=== PATIENT | male | born 1960 | race African-American/Black ===

== ENCOUNTER 2016-10-03 19:47 | Emergency (ER) | payer SELFPAY ==
[~2016-10-03 19:47] MED LIST: IBUP800T23 PO; METH750T2 PO
[2016-10-03 19:50] VITALS: BP 158/86; PULSE 71; RESP 16; TEMP 98.1; O2SAT 99
[2016-10-03] MEDS ORDERED: IBUP-988 PO (21:47)
[2016-10-03 21:54] VITALS: BP 163/100; PULSE 64; RESP 18; O2SAT 100
[2016-10-03 21:59] VITALS: RESP 18; O2SAT 100
[2016-10-03] MEDS ORDERED: MORPHINE SULFATE 4 MG/ML INJ IV PUSH ONE (22:00)
[2016-10-03] MEDS ORDERED: ONDANSETRON HCL 4 MG/2 ML VIAL IVP ONE (22:00)
[2016-10-03] MEDS ORDERED: SODIUM CHLORIDE 0.9% FLUSH 5 ML FLUSH IVF PRN (22:00)
--- NOTE | 2016-10-03 22:26 | PD ---
HPI . Left-sided weakness Chief Complaint: Numbness/Tingling Time Seen by Provider: 21:53 Travel History International Travel<30 days: No Contact w/Intl Traveler<30days: No Traveled to known affect area: No History of Present Illness HPI Patient presents with left-sided weakness and numbness which started yesterday. He states that it is progressively worse today. He denies any associated symptoms such as headache, blurred vision, facial weakness, nausea or vomiting. He has noted no exacerbating or relieving symptoms. He reports no chronic medical problems such as diabetes or hypertension. He complains of chronic low back pain. [id number]: Left side DURATION: 24 hours TIMING: Continuous and worsening CONTEXT: No history of hypertension or diabetes MODIFYING FACTORS: No exacerbating or relieving factors ASSOCIATED SYMPTOMS: Chronic low back pain PFSH Past Medical History Diminished Hearing: No Musculoskeletal: Yes (BACK INJURY) Tetanus Vaccination: Unknown Influenza Vaccination: No Past Surgical History Surgical History: No Previous Surgery Social History Alcohol Use: Yes (DAILY) Tobacco Use: Yes (<1/2 PPD) Substance Use: No Allergies-Medications (Allergen,Severity, Reaction): Coded Allergies: No Known Allergies (Unverified , 10/03/16) Reported Meds & Prescriptions Reported Meds & Active Scripts Active Reported Advil (Ibuprofen) 200 Mg Tab 400 Mg PO BID Review of Systems Except as stated in HPI: all other systems reviewed are Neg General / Constitutional: No: Fever, Chills Eyes: No: Blurred Vision HENT: No: Headaches Cardiovascular: No: Chest Pain or Discomfort Respiratory: No: Shortness of Breath Gastrointestinal: No: Nausea, Vomiting, Diarrhea Genitourinary: No: Incontinence Musculoskeletal: Positive: Pain (chronic low back pain) Neurologic: Positive: Weakness, Focal Abnormalities, Paresthesia Physical Exam Narrative GENERAL: Awake and alert and in no acute distress. SKIN: Warm and dry. HEAD: Atraumatic. Normocephalic. EYES: Pupils equal and round. ENT: No nasal bleeding or discharge. Mucous membranes pink and moist. NECK: Trachea midline. Neck is supple. CARDIOVASCULAR: Regular rate and rhythm. Heart sounds are normal. RESPIRATORY: No accessory muscle use. Lungs are clear with good air movement throughout. GASTROINTESTINAL: Abdomen soft, non-tender, nondistended. MUSCULOSKELETAL: No obvious deformities. No edema. NEUROLOGICAL: Awake and alert. No obvious cranial nerve deficits. 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 He is holding his biceps muscle tenderness with apparent full strength. When I was checking reflexes in his lower extremities, he could not relax his left leg. He was holding his leg up off the stretcher in no apparent weakness. The patient walked into triage. Normal speech. PSYCHIATRIC: Appropriate mood and affect; insight and judgment normal. Data Data Last Documented VS Vital Signs Date Time Temp Pulse Resp B/P Pulse Ox O2 Delivery O2 Flow Rate FiO2 10/03/16 21:59 18 100 Room Air 10/03/16 21:54 64 163/100 10/03/16 19:50 98.1 Orders Electrocardiogram (10/03/16 21:53) Prothrombin Time / Inr (Pt) (10/03/16 21:53) Act Partial Throm Time (Ptt) (10/03/16 21:53) Complete Blood Count With Diff (10/03/16 21:53) Comprehensive Metabolic Panel (10/03/16 21:53) Ct Brain W/O Iv Contrast(Rout) (10/03/16 21:53) Chest, Single Ap (10/03/16 21:53) Ecg Monitoring (10/03/16 21:53) Iv Access Insert/Monitor (10/03/16 21:53) Oximetry (10/03/16 21:53) Morphine Inj (Morphine Inj) (10/03/16 22:00) Ondansetron Inj (Zofran Inj) (10/03/16 22:00) Sodium Chloride 0.9% Flush (Ns Flush) (10/03/16 22:00) Labs Laboratory Tests Test 10/03/16 22:20 White Blood Count 6.0 TH/MM3 Red Blood Count 4.79 MIL/MM3 Hemoglobin 14.6 GM/DL Hematocrit 41.9 % Mean Corpuscular Volume 87.4 FL Mean Corpuscular Hemoglobin 30.4 PG Mean Corpuscular Hemoglobin 34.8 % Concent Red Cell Distribution Width 14.0 % Platelet Count 267 TH/MM3 Mean Platelet Volume 7.2 FL Neutrophils (%) (Auto) 51.6 % Lymphocytes (%) (Auto) 36.5 % Monocytes (%) (Auto) 7.9 % Eosinophils (%) (Auto) 3.1 % Basophils (%) (Auto) 0.9 % Neutrophils # (Auto) 3.1 TH/MM3 Lymphocytes # (Auto) 2.2 TH/MM3 Monocytes # (Auto) 0.5 TH/MM3 Eosinophils # (Auto) 0.2 TH/MM3 Basophils # (Auto) 0.1 TH/MM3 CBC Comment DIFF FINAL Differential Comment Prothrombin Time 10.7 SEC Prothromb Time International 1.0 RATIO Ratio Activated Partial 27.5 SEC Thromboplast Time Sodium Level 143 MEQ/L Potassium Level 3.8 MEQ/L Chloride Level 108 MEQ/L Carbon Dioxide Level 26.2 MEQ/L Anion Gap 9 MEQ/L Blood Urea Nitrogen 8 MG/DL Creatinine 1.16 MG/DL Estimat Glomerular Filtration 78 ML/MIN Rate Random Glucose 73 MG/DL Calcium Level 9.1 MG/DL Total Bilirubin 0.2 MG/DL Aspartate Amino Transf 29 U/L (AST/SGOT) Alanine Aminotransferase 37 U/L (ALT/SGPT) Alkaline Phosphatase 74 U/L Total Protein 7.9 GM/DL Albumin 3.8 GM/DL MDM Medical Decision Making Medical Screen Exam Complete: Yes Emergency Medical Condition: Yes Medical Record Reviewed: Yes (he's been seen here several times with back related problems.) Interpretation(s) EKG shows a normal sinus rhythm. He has an early repolarization pattern. He has no old EKGs for comparison. Differential Diagnosis Differential diagnosis includes but is not limited to TIA, CVA, brain tumor, migraine, anxiety Narrative Course Patient presents for acute left-sided weakness. His symptoms started yesterday so he is not a TPA candidate. He is also complaining with low back pain which is a chronic problem for him. Last Impressions Head CT 10/03/162152 Signed Impressions: Service Date/Time: Monday, October 03, 2016 22:22 - CONCLUSION: 1. No focal or acute intracranial hemorrhage. 2. Bilateral cortical atrophy and chronic white matter changes. Wade Celaya MD Chest X-Ray 10/03/162152 Signed Impressions: Service Date/Time: Monday, October 03, 2016 22:14 - CONCLUSION: No acute intrathoracic disease. Wade Celaya MD CBC & BMP Diagram 10/03/16 22:20 I have not found an acute problem. The patient's major complaint is actually his back. He states that the pain in his back is so severe that it is "locking up his whole left side." His physical exam findings don't really go along with a stroke. Admission was offered but declined. Diagnosis Primary Impression: Back pain Qualified Code: M54.5 - Chronic left-sided low back pain without sciatica Additional Impression: Left-sided weakness Referrals: [facility] Med/Other Pt SpecificInfo: Prescription(s) given Scripts Cyclobenzaprine (Flexeril)10 Mg Tab10 Mg PO TID #90 TAB Ref 0 Prov:Cinthia Coronado MD 10/03/16 Ibuprofen 800 Mg [id number] Mg PO Q8H PRN (pain) #90 TAB Ref 0 Prov:Cinthia Coronado MD 10/03/16 Disposition: 01 DISCHARGE HOME Condition: Stable Cinthia Coronado MD Oct 03, 2016 22:26
[2016-10-03 22:29] LABS: AUTOMATED NEUTROPHIL # 3.1 TH/MM3 (1.8-7.7); BASOPHIL # 0.1 TH/MM3 (0-0.2); BASOPHIL % 0.9 % (0.0-2.0); EOSINOPHIL # 0.2 TH/MM3 (0-0.4); EOSINOPHIL % 3.1 % (0.0-4.0); HEMATOCRIT 41.9 % (39.0-51.0); HEMO FLAGS DIFF FINAL; LYMPH % 36.5 % (9.0-44.0); LYMPHOCYTE # 2.2 TH/MM3 (1.0-4.8); MEAN CELL VOLUME 87.4 FL (80.0-100.0); MEAN CORPUSCULAR HEMOGLOBIN 30.4 PG (27.0-34.0); MEAN CORPUSCULAR HGB CONC 34.8 % (32.0-36.0); MONO % 7.9 % (0.0-8.0); NEUT % 51.6 % (16.0-70.0); PLATELET COUNT 267 TH/MM3 (150-450); RED BLOOD COUNT 4.79 MIL/MM3 (4.50-5.90)
--- NOTE | 2016-10-03 22:32 | RADRPT ---
EXAM DATE/TIME: 10/03/2016 22:14 [facility] COMPARISON: No previous studies available for comparison. INDICATIONS : Chest pain. MEDICAL HISTORY : None. SURGICAL HISTORY : None. ENCOUNTER: Initial ACUITY: 1 day PAIN SCORE: 8/10 LOCATION: Bilateral chest FINDINGS: A single view of the chest demonstrates the lungs to be symmetrically aerated without evidence of mas s, infiltrate or effusion. The cardiomediastinal contours are unremarkable. Osseous structures are intact. CONCLUSION: No acute intrathoracic disease. Wade Celaya MD on October 03, 2016 at 22:31 Board Certified Radiologist. This report was verified electronically.
--- NOTE | 2016-10-03 22:35 | RADRPT ---
EXAM DATE/TIME: 10/03/2016 22:22 [facility] COMPARISON: No previous studies available for comparison. INDICATIONS : Headache and left-sided numbness. RADIATION DOSE: 40.32 CTDIvol (mGy) MEDICAL HISTORY : None SURGICAL HISTORY : None. ENCOUNTER: Initial ACUITY: 1 day PAIN SCALE: 5/10 LOCATION: cranial TECHNIQUE: Multiple contiguous axial images were obtained of the head. Using automated exposure control and adj ustment of the mA and/or kV according to patient size, radiation dose was kept as low as reasonably a chievable to obtain optimal diagnostic quality images. FINDINGS: CEREBRUM: The ventricles are normal for age. There is bilateral cortical atrophy with chronic white matter blandon ges. No evidence of midline shift, mass lesion, hemorrhage or acute infarction. No extra-axial fluid collections are seen. POSTERIOR FOSSA: The cerebellum and brainstem are intact. The 4th ventricle is midline. The cerebellopontine angle i s unremarkable. EXTRACRANIAL: The visualized portion of the orbits is intact. SKULL: The calvaria is intact. No evidence of skull fracture. CONCLUSION: 1. No focal or acute intracranial hemorrhage. 2. Bilateral cortical atrophy and chronic white matter changes. Wade Celaya MD on October 03, 2016 at 22:32 Board Certified Radiologist. This report was verified electronically.
[2016-10-03 22:43] LABS: ALT (GPT) 37 U/L (12-78); ANION GAP 9 MEQ/L (5-15); AST (GOT) 29 U/L (15-37); BICARBONATE 26.2 MEQ/L (21.0-32.0); BLOOD UREA NITROGEN 8 MG/DL (7-18); CHLORIDE 108 MEQ/L (98-107); GLOMERULAR FILTRATION RATE 78 ML/MIN (>89); POTASSIUM 3.8 MEQ/L (3.5-5.1); SODIUM (NA) 143 MEQ/L (136-145)
[2016-10-03 22:45] LABS: ALKALINE PHOSPHATASE 74 U/L (45-117); TOTAL BILIRUBIN ADULT 0.2 MG/DL (0.2-1.0)
[2016-10-03 23:09] LABS: APTT (PATIENT) 27.5 SEC (24.3-30.1); PROTHROMBIN TIME - PATIENT 10.7 SEC (9.8-11.6)
[2016-10-03] MEDS ORDERED: IBUP800T23 PO (23:52)
[2016-10-03] MEDS ORDERED: CYCL1TAB29 PO (23:52)
--- NOTE | 2016-10-04 10:05 | EKG ---
Date Performed: 10/03/2016 Time Performed: 22:02:47 PTAGE: 56 years EKG: Sinus rhythm EARLY REPOLARIZATION BORDERLINE ECG NO PREVIOUS TRACING DOCTOR: Ramy Mojica Interpretating Date/Time 10/04/2016 10:02:24
== END 2016-10-04 00:07 | disposition home or self-care (01) ==
LOC: NEPA 19:47
DX: M54.5 Low back pain (principal); G89.29 Other chronic pain; R94.31 Abnormal electrocardiogram [ECG] [EKG]; F17.210 Nicotine dependence, cigarettes, uncomplicated
CPT/HCPCS: 70450; 71010; 80053; 85025; 85610; 85730; 93005; 96374; 96375; 99285; J2270; J2405